=== PATIENT | female | born 1965 | race Caucasian/White ===

== ENCOUNTER 2020-11-19 16:19 | Outpatient (CLI) | payer OTHER, SELFPAY ==
--- NOTE | ~2020-11-19 | MM_ITS ---
EXAMINATION: MM screening dara BI w radha HISTORY: Screening TECHNIQUE: Craniocaudal and mediolateral oblique 3-D tomosynthesis images were obtained and synthetic 2-D images were generated. CAD analysis was submitted and interpreted. COMPARISON: Comparison to multiple prior studies sequentially, with oldest reviewed study dated 04/23. BREAST PARENCHYMAL COMPOSITION: There are scattered areas of fibroglandular density. FINDINGS: There is no evidence of suspicious mass, calcification, or architectural distortion to sugg est malignancy in either breast. There has been no suspicious interval change. IMPRESSION: 1. No mammographic evidence of malignancy. 2. Recommend routine screening mammography in one year. BI-RADS Category 1: Negative Reviewed, dictated and finalized at location A.
== END 2020-11-19 16:20 | disposition home or self-care (01) ==
PROVIDERS: PCP Internal Medicine; Visit Provider Obstetrics & Gynecology
DX: Z12.31 Encounter for screening mammogram for malignant neoplasm of breast (principal)
CPT/HCPCS: 77063; 77067

== ENCOUNTER 2022-03-24 10:41 | Outpatient (CLI) | payer BC, SELFPAY ==
--- NOTE | ~2022-03-24 | MM_ITS ---
EXAMINATION: MM screening dara BI w radha HISTORY: Screening mammogram TECHNIQUE: Craniocaudal and mediolateral oblique 3-D tomosynthesis images were obtained and synthetic 2-D images were generated. CAD analysis was submitted and interpreted. COMPARISON: 11/19/2020, 08/16/2019, 07/27/2018 bilateral screening mammogram examinations BREAST PARENCHYMAL COMPOSITION: The breasts are almost entirely fatty. FINDINGS: There is no evidence of suspicious mass, calcification, or architectural distortion to sugg est malignancy in either breast. There has been no suspicious interval change. IMPRESSION: 1. No mammographic evidence of malignancy. 2. Recommend routine screening mammography in one year. BI-RADS Category 1: Negative Reviewed, dictated and finalized at location A.
== END 2022-03-24 10:42 | disposition home or self-care (01) ==
PROVIDERS: PCP Internal Medicine; Visit Provider Obstetrics & Gynecology
DX: Z12.31 Encounter for screening mammogram for malignant neoplasm of breast (principal)
CPT/HCPCS: 77063; 77067

== ENCOUNTER 2023-09-17 01:18 | Day surgery (SDC) | payer BC, SELFPAY ==
--- NOTE | 2023-09-15 09:21 | SUR.PREOP ---
Patient called regarding upcoming procedure. Voicemail left regarding appointment times.
--- NOTE | 2023-09-16 15:04 | PM.HPGS ---
History of Present Illness History of Present Illness Consent: Risks, benefits, and alternatives have been discussed and questions answered. Patient agrees to proceed with procedure. Chief complaint: neoplasm screening Narrative: Jerilyn Lai is a 58 year old female referred for colon cancer screening. She had a polyp removed at the time of her last colonoscopy 7 years ago. Review of Systems Review of Systems: All systems reviewed & are unremarkable except as noted in HPI and below PMFSH Past Medical History Medical History Abnormal Pap smear of cervix years ago Arthritis Gestational diabetes Herpes History of Kidney stones Screening mammogram, encounter for Skin cancer Urinary incontinence Surgical History Surgical History History of blepharoplasty (09/09/17) bilateral eyelids History of 09/24/95 primary c/s 07/07/21 rpt c/s w/tubal--gestational diabetes History of elective x3 Family History Family History Grandparent Osteoporosis maternal grandmother Carcinoma of colon maternal grandfather Alzheimer's disease maternal grandmother Mother Diabetes mellitus Hypothyroidism Heart disease History of coronary artery stent placement Sibling Hypothyroidism sister Other Breast cancer paternal aunt Heart disease paternal uncle Father Multiple sclerosis Social History Social History Smoking status: Never smoker Second hand tobacco smoke exposure: Yes Alcohol intake: never Substance use: never Substance use type: does not use Living arrangements: with family Additional living arrangements comments: 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/Education: 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 Gender identity (if verbalized by the patient): Female Sexual Orientation (if Verbalized by the Patient): Straight or Heterosexual Spiritual care concerns: No Meds Home Medications and Allergies Home Medications Medication Instructions Recorded Confirmed Type multivit with minerals-iron 18 1 tablet PO DAILY 08/26/23 08/26/23 History mg-folic ac 400 mcg-vit K 25 mcg tablet (Adults Multivitamin) Allergies Allergy/AdvReac Type Severity Reaction Status Date / Time morphine AdvReac Intermediate Vomiting Verified 09/17/23 08:53 Exam Resp: Auscultation: clear to auscultation bilaterally Cardio: Rate: regular rate Rhythm: regular rhythm GI: GI Palp: Yes Soft to palpation and No Tenderness to palpation present (GI) Assessment and Plan Assessment and plan (1) Colon cancer screening: Code(s): Z12.11 - Encounter for screening for malignant neoplasm of colon Status: Acute Assessment and Plan: Colonoscopy with possible biopsy or polypectomy or cautery or injection of substances.
[2023-09-17 08:54] VITALS: BP 140/81; PULSE 80; RESP 18; TEMP 36.9; O2SAT 100
[2023-09-17] MEDS: LACTATED RINGERS 1,000 ML 150 ML IV CONT (09:01)
--- NOTE | 2023-09-17 09:21 | WPDANESEPPF ---
Anes - Initial Pre Proc Eval Procedure: Operation Date: 09/17/23 10:00 Proposed Procedures p Screening Colonoscopy - Crow Jonas MD Date/Time: 09/17/23 09:21 Surgeon: Crow Jonas MD Pre Op Diagnosis: neoplasm screening Patient Data Age: 58 Gender: F Height: 1.6 m Weight: 76.8 kg Last Vital Signs Temp 98.5 F 09/17/23 08:54 Pulse 80 09/17/23 08:54 Resp 18 09/17/23 08:54 BP 140/81 09/17/23 08:54 Pulse Ox 100 09/17/23 08:54 O2 Del Method Room Air 09/17/23 08:54 Allergies Allergy/AdvReac Type Severity Reaction Status Date / Time morphine AdvReac Intermediate Vomiting Verified 09/17/23 08:53 Home Medications Medication Instructions Recorded Confirmed Type multivit with minerals-iron 18 1 tablet PO DAILY 08/26/23 08/26/23 History mg-folic ac 400 mcg-vit K 25 mcg tablet (Adults Multivitamin) Patient hx anesthesia problems: none Family hx anesthesia problems: none Results Review: All pre-operative results and documents have been reviewed as part of the pre-operative evaluation. [facility] Past Medical History Medical History Abnormal Pap smear of cervix years ago Arthritis Gestational diabetes Herpes History of Kidney stones Screening mammogram, encounter for Skin cancer Urinary incontinence Surgical History Surgical History History of blepharoplasty (09/09/17) bilateral eyelids History of 09/24/95 primary c/s 07/07/21 rpt c/s w/tubal--gestational diabetes History of elective x3 Family History Family History Grandparent Osteoporosis maternal grandmother Carcinoma of colon maternal grandfather Alzheimer's disease maternal grandmother Mother Diabetes mellitus Hypothyroidism Heart disease History of coronary artery stent placement Sibling Hypothyroidism sister Other Breast cancer paternal aunt Heart disease paternal uncle Father Multiple sclerosis Social History Social History Smoking status: Never smoker Second hand tobacco smoke exposure: Yes Alcohol intake: never Substance use: never Substance use type: does not use Living arrangements: with family Additional living arrangements comments: 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/Education: 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 Gender identity (if verbalized by the patient): Female Sexual Orientation (if Verbalized by the Patient): Straight or Heterosexual Spiritual care concerns: No Anes - Eval Final PreProcedure Day of Procedure 09/17/23 09:21 Patient weight: normal Heart: regular rate and rhythm Lungs: clear to auscultation Airway: Mallampati scale class II Neurological: alert and oriented Last oral intake: >/= 8 hours ASA classification: II Emergent: no Anesthetic plan: proceed Anesthesia type and monitoring: general GIVS and standard monitoring Results Review: All pre-operative results and documents have been reviewed as part of the pre-operative evaluation. Informed Consent: The patient's anesthetic plan and its attendant risks and benefits were discussed with the patient/family/POA. Questions were solicited and answers provided to the satisfaction of the patient/family/POA.
[2023-09-17 09:50] VITALS: BP 108/73; PULSE 80; RESP 21; O2SAT 98
[2023-09-17 10:00] VITALS: BP 114/79; PULSE 74; RESP 16; O2SAT 98
[2023-09-17 10:10] VITALS: BP 125/84; PULSE 67; RESP 15; O2SAT 98
== END 2023-09-17 10:20 | disposition home or self-care (01) ==
PROVIDERS: PCP Internal Medicine; Visit Provider Internal Medicine Gastroenterology
PROC: 0DJD8ZZ Inspection of Lower Intestinal Tract, Via Natural or Artificial Opening Endoscopic (ICD-10-PCS; CPT 45378; principal; 2023-09-17 10:00)
DX: Z12.11 Encounter for screening for malignant neoplasm of colon (principal); K63.5 Polyp of colon; K63.89 Other specified diseases of intestine
CPT/HCPCS: 45385; 88305; J2704; J7120

== ENCOUNTER 2023-12-01 09:02 | Outpatient (CLI) | payer BC, SELFPAY ==
--- NOTE | ~2023-12-01 | MM_ITS ---
EXAMINATION: MM screening dara BI w radha HISTORY: Screening mammogram TECHNIQUE: Craniocaudal and mediolateral oblique 3-D tomosynthesis images were obtained and synthetic 2-D images were generated. CAD analysis was submitted and interpreted. COMPARISON: 03/24/2022, 11/19/2020 bilateral screening mammogram examinations BREAST PARENCHYMAL COMPOSITION: The breasts are almost entirely fatty. FINDINGS: There is no evidence of suspicious mass, calcification, or architectural distortion to sugg est malignancy in either breast. There has been no suspicious interval change. IMPRESSION: 1. No mammographic evidence of malignancy. 2. Recommend routine screening mammography in one year. BI-RADS Category 1: Negative Reviewed, dictated and finalized at location A.
== END 2023-12-01 09:03 | disposition home or self-care (01) ==
PROVIDERS: PCP Internal Medicine; Visit Provider Obstetrics & Gynecology
DX: Z12.31 Encounter for screening mammogram for malignant neoplasm of breast (principal)
CPT/HCPCS: 77063; 77067

== ENCOUNTER 2024-12-20 15:34 | Outpatient (CLI) | payer BC, SELFPAY ==
--- NOTE | ~2024-12-20 | MM_ITS ---
EXAMINATION: MM screening dara BI w radha HISTORY: Screening TECHNIQUE: Craniocaudal and mediolateral oblique 3-D tomosynthesis images were obtained and synthetic 2-D images were generated. CAD analysis was submitted and interpreted. COMPARISON: Comparison to multiple prior studies sequentially, with oldest reviewed study dated 05/09. BREAST PARENCHYMAL COMPOSITION: Not Dense: The breasts are almost entirely fatty. FINDINGS: There is no evidence of suspicious mass, calcification, or architectural distortion to sugg est malignancy in either breast. There has been no suspicious interval change. IMPRESSION: 1. No mammographic evidence of malignancy. 2. Recommend routine screening mammography in one year. BI-RADS Category 1: Negative Reviewed, dictated and finalized at location A.
--- OUTSIDE RECORDS SUMMARY | 2024-12-20 15:46 | XMS_ITS | Clinical Summary ---
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 Name Role Phone Dmitry Doan MD Primary Care Provider + [phone] Allergies Active Allergy Reactions Criticality Noted Date Comments Morphine Vomiting Low 11/07/2021 Social History Tobacco Use Types Packs/Day Years Used Date Smoking Tobacco: Never Assessed Personal Safety Answer Date Recorded Getting School Help Needed Not on file 10/22 Comments Unknown Sex and Gender Information Value Date Recorded Sex Assigned at Not on file Legal Sex Female 1:07 AM [employer] Gender Identity Not on file Sexual Orientation Not on file Plan of Treatment Health Maintenance Due Date Last Done Comments Breast Cancer Screening-Mammogram 1967 Cervical Cancer Screening 1967 Colon Cancer Screening-Colonoscopy 1967 Depression Screening 1967 Hepatitis C Screening 1967 DTaP/Tdap/Td Vaccine (1 - Tdap) 1978 Hepatitis B Screening 1985 Regular Well Visit/Exam 18-64 1985 Zoster Vaccine (1 of 2) 2017 Covid-19 Vaccine ( season) 2024 08/30/2021, 06/19/2021, 09/27/2020, Additional history exists Influenza Vaccine (#1) 2024 Pneumococcal vaccine <65 Aged Out No longer eligible based on patient's age to complete this topic Insurance [facility] [place] [id number] Care Teams Bird Sitter Relationship Specialty Start Date End Date Dmitry Doan MD PCP - General Internal Medicine 10/10/21
--- OUTSIDE RECORDS SUMMARY | 2024-12-20 15:46 | XMS_ITS | Clinical Summary ---
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 Name Role Phone Unavailable Primary Care Provider Unavailabl e Social History Tobacco Use Types Packs/Day Years Used Date Smoking Tobacco: Never Assessed Comments Unknown Sex and Gender Information Value Date Recorded Sex Assigned at Not on file Legal Sex Female 7:45 PM CDT Gender Identity Not on file Sexual Orientation Not on file Plan of Treatment Health Maintenance Due Date Last Done Comments Cervical Cancer Screening Pa p Smear (Age 30 to 64) Every 3 Years 1967 Colorectal Cancer Screening Colonoscopy (10 Years) 1967 Annual Physical 1970 Hepatitis C 1985 DTaP, Tdap and Td Vaccines ( 1 - Tdap) 1986 Hepatitis B Vaccines (1 of 3 - 19+ 3-dose series) 1986 Cervical Cancer Screening Pa p with HPV Testing (Age 30 to 64) Every 5 Years 1997 Cervical Cancer Screening with HPV 1997 Mammogram Screening 2007 Pneumococcal Vaccine: 50+ Ye ars (1 of 1 - PCV) 2017 Zoster Vaccines (1 of 2) 2017 COVID-19 Vaccine (2023-2 5 season) 2024 Meningococcal B Vaccine Aged Out No l onger eligible based on patient's age to complete this topic Meningococcal Vaccine Aged Out No ba papi eligible based on patient's age to complete this topic RSV Immunizations Under 20 Months Aged Out No longer eligible based on patient's age to complete this topic
--- OUTSIDE RECORDS SUMMARY | 2024-12-20 15:46 | XMS_ITS | Data Portability ---
Author Organization [place] [facility], Main Office Address [address] [place] [address] Care Team Providers Care Side Laster Name Role Phone LU DOAN Primary Care Provider LU DOAN Referring Provider [phone] Assessment Encounter Date Assessment Date Assessment LastModified by Organization Details LastModified Time 10/20/2022 10/20/2022 Blood work ordered Continue healthy lifestyle choices rtc 6 months [email or web address] Not available 11/01/2022 15:21:45 08/26/2023 08/26/2023 She is doing fine she is going to get a coronary calcium scoring we did discuss and she wants to pursue she will follow-up with me in 4 5 months she has had some diarrhea that got better with gluten free diet and we will continue that [email or web address] Not available 08/26/2023 14:55:23 Plan of Treatment Reminders Order Date Submit Date Provider Last Modified By Organization Details Last Modified Time Details Appointments None recorded . Lab lipid panel, serum 023 10/21/19 [employer] [facility], [address], [place], [address], 3 04:20:30 CMP, serum or plasma 023 10/21/19 [facility] [employer] [facility], [address], [place], [address], 3 04:20:32 CBC w/ auto diff 023 10/21/19 [employer] [facility], [address], [place], [address], 3 04:20:33 HbA1c (hemoglo bin A1c), blood 023 10/21/19 [facility], [address], [place], [address], 04:20:34 Referral None recorded . Procedures None recorded . Surgeries None recorded . Imaging None recorded . Medication Orders None recorded . Patient TargetsNo targets recorded. Patient InstructionsNo instructions recorded. Reason for Referral None Reported. Results Created Date Observation Date Name Description Value Unit Range Abnormal Flag Note LastModifiedBy Organization Detail LastModifiedTime 10/23/1910/23/2022 LIPID PANEL , STAND NILESH cholesterol, total 209 mg/dL <200 high Not Available [facility] [address], [address], 10/23/2022 04:20:30 10/23/19 23 10/23/2022 LIPID PANEL , STAND NILESH HDL cholesterol 59 mg/dL > or = 50 normal Not Available [facility] [address], [address], 10/23/2022 04:20:30 10/23/19 23 10/23/2022 LIPID PANEL , STAND NILESH triglyceride s 97 mg/dL <150 normal Not Available [address], [address], 10/23/2022 04:20:30 10/23/19 23 10/23/2022 LIPID PANEL , STAND NILESH LDL-choleste rol 130 mg/dL _(shalini c) high Refer ence range : <100 Osmar able range <100 mg/dL for prima ry preve ntion ; <70 mg/dL for patie nts with CHD or diabe tic patie nts with > or = 2 CHD risk facto rs. LDL-C is now calcu lated using the Osiris n-Hop kins calcu latmaurilio n, which is a valid ated novel metho d zoe fair r accur acy than the Fried karyna equat ion in the estim ation of LDL-C . Osiris n SS et al. YANIRA. 2013; 310(1 9): 2061- 2068 (http ://ed ucati on.[employer]. [employer]/f aq/FA Q164) Not Available [facility] [address], [place], [address], 10/23/2022 04:20:30 10/23/19 23 10/23/2022 LIPID PANEL , STAND NILESH chol/HDLC ratio 3.5 (calc ) <5.0 normal Not Available [facility] [address], [place], [address], 10/23/2022 04:20:30 10/23/1910/23/2022 LIPID PANEL , STAND NILESH non HDL cholesterol 150 mg/dL _(shalini c) <130 high For patie nts with diabe taz plus 1 major ASCVD risk facto r, treat ing to a non-H DL-C goal of <100 mg/dL (LDL- C of <70 mg/dL ) is consi dered a thera peuti c optio n. Not Available [facility] [address], [place], [address], 10/23/2022 04:20:30 10/23/1910/23/2022 COMPR EHENS MONICA METAB OLIC PANEL glucose 107 mg/dL 65-99 high Fasti ng refer ence inter sonali For someo ne witho ut known diabe taz, a gluco se value betwe en 100 and 125 mg/dL is consi stent with predi abete s and shoul d be confi rmed with a follo w-up test. Not Available [facility] [address] [address] [place], [address], 10/23/2022 04:20:32 10/23/1910/23/2022 COMPR EHENS MONICA METAB OLIC PANEL urea nitrogen (BUN) 17 mg/dL 7-25 normal Not Available [facility] [address] [address] [place], [address], 10/23/2022 04:20:32 10/23/19 23 10/23/2022 COMPR EHENS MONICA METAB OLIC PANEL creatinine 0.79 mg/dL 0.50-1 .03 normal Not Available [address], [address], 10/23/2022 04:20:32 10/23/19 23 10/23/2022 COMPR EHENS MONICA METAB OLIC PANEL eGFR 88 mL/mi n/1.7 3m2 > or = 60 normal The eGFR is based on the CKD-E PI 2020 equat ion. To calcu late the new eGFR from a previ ous Creat inine or Cysta tin C resul t, go to https ://flaquita marquez/coni kan s/ kdoqi /gfr% 5Fcal culat or Not Available [address], [address], 10/23/2022 04:20:32 10/23/19 23 10/23/2022 COMPR EHENS MONICA METAB OLIC PANEL BUN/creatini ne ratio NOT APPLIC ABLE (calc ) 6-22 Not Available [address], [address], 10/23/2022 04:20:32 10/23/19 23 10/23/2022 COMPR EHENS MONICA METAB OLIC PANEL sodium 141 mmol/ L 135-14 6 normal Not Available [address], [address], 10/23/2022 04:20:32 10/23/19 23 10/23/2022 COMPR EHENS MONICA METAB OLIC PANEL potassium 4.3 mmol/ L 3.5-5. 3 normal Not Available [address], [address], 10/23/2022 04:20:32 10/23/19 23 10/23/2022 COMPR EHENS MONICA METAB OLIC PANEL chloride 106 mmol/ L 98-110 normal Not Available [address], [address], 10/23/2022 04:20:32 10/23/19 23 10/23/2022 COMPR EHENS MONICA METAB OLIC PANEL carbon dioxide 24 mmol/ L 20-32 normal Not Available [address], [address], 10/23/2022 04:20:32 10/23/19 23 10/23/2022 COMPR EHENS MONICA METAB OLIC PANEL calcium 9.7 mg/dL 8.6-10 .4 normal Not Available [address], [address], 10/23/2022 04:20:32 10/23/19 23 10/23/2022 COMPR EHENS MONICA METAB OLIC PANEL protein, total 6.8 g/dL 6.1-8. 1 normal Not Available [address], [address], 10/23/2022 04:20:32 10/23/19 23 10/23/2022 COMPR EHENS MONICA METAB OLIC PANEL albumin 4.6 g/dL 3.6-5. 1 normal Not Available [address], [address], 10/23/2022 04:20:32 10/23/19 23 10/23/2022 COMPR EHENS MONICA METAB OLIC PANEL globulin 2.2 g/dL_ (calc ) 1.9-3. 7 normal Not Available [address], [address], 10/23/2022 04:20:32 10/23/19 23 10/23/2022 COMPR EHENS MONICA METAB OLIC PANEL albumin/glob ulin ratio 2.1 (calc ) 1.0-2. 5 normal Not Available [address], [address], 10/23/2022 04:20:32 10/23/19 23 10/23/2022 COMPR EHENS MONICA METAB OLIC PANEL bilirubin, total 0.5 mg/dL 0.2-1. 2 normal Not Available [address], [address], 10/23/2022 04:20:32 10/23/19 23 10/23/2022 COMPR EHENS MONICA METAB OLIC PANEL alkaline phosphatase 104 U/L 37-153 normal Not Available [address] [address] [place], [address], 10/23/2022 04:20:32 10/23/19 23 10/23/2022 COMPR EHENS MONICA METAB OLIC PANEL AST 16 U/L 10-35 normal Not Available [address], [address], 10/23/2022 04:20:32 10/23/19 23 10/23/2022 COMPR EHENS MONICA METAB OLIC PANEL ALT 19 U/L 6-29 normal Not Available [address], [address], 10/23/2022 04:20:32 10/23/19 23 10/23/2022 CBC (INCL UDES DIFF/ PLT) white blood cell count 5.5 thous and/u L 3.8-10 .8 normal Not Available [address], [address], 10/23/2022 04:20:33 10/23/19 23 10/23/2022 CBC (INCL UDES DIFF/ PLT) red blood cell count 5.02 марина on/uL 3.80-5 .10 normal Not Available [address], [address], 10/23/2022 04:20:33 10/23/19 23 10/23/2022 CBC (INCL UDES DIFF/ PLT) hemoglobin 14.2 g/dL 11.7-1 5.5 normal Not Available [address], [address], 10/23/2022 04:20:33 10/23/19 23 10/23/2022 CBC (INCL UDES DIFF/ PLT) hematocrit 42.5 % 35.0-4 5.0 normal Not Available [address], [address], 10/23/2022 04:20:33 10/23/19 23 10/23/2022 CBC (INCL UDES DIFF/ PLT) MCV 84.7 fL 80.0-1 00.0 normal Not Available [address], [address], 10/23/2022 04:20:33 10/23/19 23 10/23/2022 CBC (INCL UDES DIFF/ PLT) MCH 28.3 pg 27.0-3 3.0 normal Not Available [address], [address], 10/23/2022 04:20:33 10/23/19 23 10/23/2022 CBC (INCL UDES DIFF/ PLT) MCHC 33.4 g/dL 32.0-3 6.0 normal Not Available [address], [address], 10/23/2022 04:20:33 10/23/19 23 10/23/2022 CBC (INCL UDES DIFF/ PLT) RDW 12.2 % 11.0-1 5.0 normal Not Available [address], [address], 10/23/2022 04:20:33 10/23/19 23 10/23/2022 CBC (INCL UDES DIFF/ PLT) platelet count 311 thous and/u L 140-40 0 normal Not Available [address], [address], 10/23/2022 04:20:33 10/23/19 23 10/23/2022 CBC (INCL UDES DIFF/ PLT) MPV 9.4 fL 7.5-12 .5 normal Not Available [address], [address], 10/23/2022 04:20:33 10/23/19 23 10/23/2022 CBC (INCL UDES DIFF/ PLT) absolute neutrophils 3135 cells /uL 1500-7 800 normal Not Available [address], [address], 10/23/2022 04:20:33 10/23/19 23 10/23/2022 CBC (INCL UDES DIFF/ PLT) absolute lymphocytes 1876 cells /uL 850-39 00 normal Not Available [address], [address], 10/23/2022 04:20:33 10/23/19 23 10/23/2022 CBC (INCL UDES DIFF/ PLT) absolute monocytes 402 cells /uL 200-95 0 normal Not Available [address], [address], 10/23/2022 04:20:33 10/23/19 23 10/23/2022 CBC (INCL UDES DIFF/ PLT) absolute eosinophils 61 cells /uL 15-500 normal Not Available [address], [address], 10/23/2022 04:20:33 10/23/19 23 10/23/2022 CBC (INCL UDES DIFF/ PLT) absolute basophils 28 cells /uL 0-200 normal Not Available [address], [address], 10/23/2022 04:20:33 10/23/19 23 10/23/2022 CBC (INCL UDES DIFF/ PLT) neutrophils 57 % normal Not Available [address] [address] [place], [address], 10/23/2022 04:20:33 10/23/19 23 10/23/2022 CBC (INCL UDES DIFF/ PLT) lymphocytes 34.1 % normal Not Available [facility] [address] [address] [place], [address], 10/23/2022 04:20:33 10/23/19 23 10/23/2022 CBC (INCL UDES DIFF/ PLT) monocytes 7.3 % normal Not Available [facility] [address] [address] [place], [address], 10/23/2022 04:20:33 10/23/19 23 10/23/2022 CBC (INCL UDES DIFF/ PLT) eosinophils 1.1 % normal Not Available [facility] [address], [address], 10/23/2022 04:20:33 10/23/19 23 10/23/2022 CBC (INCL UDES DIFF/ PLT) basophils 0.5 % normal Not Available [facility] [address], [address], 10/23/2022 04:20:33 10/23/1910/23/2022 HEMOG LOBIN A1C hemoglobin A1C 6.0 %_of_ total _HGB <5.7 high For someo ne witho ut known diabe taz, a hemog lobin A1c value betwe en 5.7% and 6.4% is consi stent with predi abete s and shoul d be confi rmed with a follo w-up test. For someo ne with known diabe taz, a value <7% indic ates that their diabe taz is well contr olled . A1c targe ts shoul d be indiv idual ized based on durat ion of diabe taz, age, comor bid condi tions , and other consi derat ions. This assay resul t is consi stent with an incre ased risk of diabe taz. Curre ntly, no conse nsus exist s regar ding use of hemog lobin A1c for diagn osis of diabe taz for child david. Not Available [facility] [address] [facility], [place], [address], 10/23/2022 04:20:34 05/22/20 22 05/25/2022 XR, hip, unila teral , 2 or 3 view No observ ation record ed. [id number] [facility] [place] [address], [place], [address], 10/07/2022 06:18:32 05/25/20 22 05/25/2022 exerc ise stres s test No observ ation record ed. [id number] [facility] [address], [place], [address], 10/07/2022 06:18:32 06/17/20 22 05/26/2022 MRI, hip, w/o contr ast No observ ation record ed. [id number] [facility] [place] [address], [place], [address], 10/07/2022 06:18:32 Result Notes None recorded. Problems Name Problem SNOMED Code Status Onset Date Resolution Date Notes Provider Name and Address Organization Details Recorded Time Urinary incontinen ce 459262476 Active Not Available [facility] 3 06:14:18 Microscopi c hematuria 246758799 Active Not Available [facility] 3 06:14:18 Steven hematuria 368291724 Active Not Available [facility] 3 06:14:18 Malaise and fatigue 471476299 Active Not Available [facility] 3 06:14:18 Pain in right lower limb 081569263 Active 2021 Not Available [facility] 3 06:14:19 Ureteric stone 23828216 Active Not Available [facility] 3 06:14:19 Pain of right hip joint 9144345219720 02 Active 2021 Not Available [facility] 3 06:14:19 Trochanter ic bursitis of right hip 8675901396042 00 Active 2021 Not Available [facility] 3 06:14:19 Arthritis 2668976 Active Not Available [facility] 3 06:14:19 Subclinica l hypothyroi dism 85759246 Active 2021 Not Available [facility] 3 06:14:19 Herpetic ulceration of vulva 11565031 Active Not Available [facility] 3 06:14:19 Palpitatio ns 14754525 Active 2021 Not Available [facility] 3 06:14:19 Fatigue 97313650 Active 2021 Not Available [facility] 3 06:14:19 Weight gain 4781143 Active 2021 Not Available [facility] 3 06:14:19 Hyperlipid emia 99199283 Active 2022 Lu Doan MD [address] [place] [address], [address] , [facility] 3 15:20:09 Essential hypertensi on 74636405 Active 2022 Karoline Lacy RN null, [facility] 3 10:17:41 Upper respirator y infection 68257873 Active 2022 Alyssa Coulter null, [facility] 3 14:40:07 Blood glucose outside reference range 042011498 Active 2022 XIMENA Snyder null, [facility] 3 13:00:56 Problem Notes None recorded. Procedures Surgical History Date Name Laterality Status Provider Name and Address Organization Details Recorded Time 07/07/20 01 completed Not Available [facility] 3 06:10:51 09/24/18 96 completed Not Available [facility] 3 06:10:51 blepharoplasty completed Not Available [facility] 10/07/2022 06:10:51 Imaging Results Imaging Date Name Status LastModified by Organiz [facility] Details LastModified Time 05/26/2022 MRI, hip, w/o contrast completed [id number] [facility] [place] [address], [place], [address], 10/07/2022 06:18:32 05/25/2022 exercise stress test completed [id number] [facility] [address], [place], [address], 10/07/2022 06:18:32 05/25/2022 XR, hip, unilateral, 2 or 3 view completed [id number] [facility] [place] [address], [place], [address], 10/07/2022 06:18:32 Procedure Notes None recorded. Medical Equipment None Reported. Allergies Allergen ID Allergen Name Allergen Category Reaction Reaction Severity Criticality Documentation Date Start Date Code Code System Note Provider Name and Address Organization Details Recorded Time 03599 morphine medicatio n vomiting Not available Not available 10/07/2022 7052 RxNorm 16 yrs ago Not Available [facility] 06:18:23 Medications Name Sig Start Date Stop Date Status Note LastModified by Organization Details LastModified Time azithromy rey 250 mg tablet TAKE 2 TABLETS BY MOUTH FOR 1 DAY THEN TAKE 1 TABLET BY MOUTH DAILY FOR 4 DAYS active Not Available Not Available No t Available benzonata te 200 mg capsule Take 1 capsule 3 times a day by oral route as directed for 7 days. active Not Available Not Available No t Available fluoroura cil 5 % topical cream APPLY ON SKIN DIRECTED TWO CONSECUT MONICA DAYS PER WEEK 10/09 completed Not Available Not Available Not Available pimecroli mus 1 % topical cream 05/22 completed hasn't started yet Not Available Not Available Not Available ciproflox acin 500 mg tablet active Not Available Not Available No t Available prednisol one acetate 1 % eye drops,samuel pension SHAKE LIQUID AND INSTILL 1 DROP IN RIGHT EYE FOUR TIMES DAILY 05/14 completed Not Available Not Available Not Available tamsulosi n 0.4 mg capsule active Not Available Not Available Not Available Solaraze 3 % topical gel 10/17 completed Not Available Not Available Not Available econazole nitrate 1 % topical cream APPLY TO TOES EVERY MORNING 10/09 completed Not Available Not Available Not Available triamcino lone acetonide 0.1 % topical ointment APPLY THIN LAYER TOPICALL Y TO GROIN DAILY NEEDED active Not Available Not Available No t Available hydrocodo ne 5 mg-acetam inophen 500 mg tablet active Not Available Not Available Not Available acyclovir 200 mg capsule TAKE 1 CAPSULE BY MOUTH TWICE DAILY FOR SUPPRESS ION 06/23 completed Not Available Not Available Not Available clobetaso l 0.05 % topical ointment APPLY A THIN LAYER TO RASH ON HANDS 2 TO 3 TIMES PER DAY FOR UP TO 14 DAYS active Not Available Not Available No t Available ketoconaz ole 2 % topical cream 10/09 completed Not Available Not Available Not Available hydroxyzi ne HCl 10 mg tablet TK 1 T PO HS 06/23 completed Not Available Not Available Not Available ondansetr on 4 mg disintegr ating tablet active Not Available Not Available Not Available nitrofura ntoin monohydra te/macroc rystals 100 mg capsule TAKE 1 CAPSULE BY MOUTH TWICE A DAY 11/13 completed Not Available Not Available Not Available ProAir HFA 90 mcg/actua tion aerosol inhaler INHALE 2 PUFFS BY MOUTH EVERY 4 HOURS active Not Available Not Available No t Available Suprep Bowel Prep Kit 17.5 gram-3.13 gram-1.6 gram oral solution TAKE DIRECTED 04/18 completed Not Available Not Available Not Available ID NOW COVID-19 Test Kit TEST DIRECTED 10/09 completed Not Available Not Available Not Available COVID-19 test specimen collectio n DIRECTED 10/09 completed Not Available Not Available Not Available Vitals Date Recorded Body mass index (BMI) Body height Body weight Provider Name and Address Organization Details Last Updated DateTime 05/22/2022 32.1 kg/m2 162.56 cm 41385.77 g Not Available [facility]/07/2022 06:13:21 Date Recorded Body mass index (BMI) Body height Body weight Provider Name and Address Organization Details Last Updated DateTime 05/29/2022 31.8 kg/m2 162.56 cm 22957.59 g Not Available [facility] 10/07/2022 06:13:21 Date Recorded Body mass index (BMI) Body height Heart rate Body temperature Body weight Systolic blood pressure Diastolic blood pressure Provider Name and Address Organization Details Last Updated DateTime 2 32.4 kg/m2 162.56 cm 77 /min 98.4 [degF] 28393.9 6 g 120 mm[Hg] 76 mm[Hg] Not Available [facility] 3 06:13:20 Date Recorded Body height Body mass index (BMI) Body weight Body temperature Heart rate Systolic blood pressure Diastolic blood pressure Provider Name and Address Organization Details Last Updated DateTime 3 162.56 cm 31.1 kg/m2 78421.2 2 g 97.3 [degF] 91 /min 116 mm[Hg] 84 mm[Hg] XIMENA Lackey [facility] 3 11:16:14 Date Recorded Body height Body mass index (BMI) Body weight Body temperature Heart rate Oxygen saturation Oxygen saturation in Arterial blood by Pulse oximetry Systolic blood pressure Diastolic blood pressure Provider Name and Address Organization Details Last Updated DateTime 4 162.56 cm 29.9 kg/m2 58277.0 7 g 97.4 [degF] 76 /min 98 % 98 % 124 mm[Hg] 88 mm[Hg] Humaira Lewis MA [facility] 4 10:23:53 Social History Question Answer Notes LastModified by Organizat ion Details LastModified Time Tobacco Smoking Status Never Smoker XIMENA Snyder [facility] 08/26/2023 10:06:27 Do You Have An Advance Directive? Yes [id number] Information not available 10/07/2022 What Is Your Level Of Caffeine Consumption? None [id number] Information not available 10/07/2022 In The 14 Days Before Symptom Onset, Have You Had Close Contact With A Laboratory-alekseyi rmed COVID-19 While That Case Was Ill? No Information not available 08/26/2023 In The 14 Days Before Symptom Onset, Have You Had Close Contact With A Person Who Is Under Investigation For COVID-19 While That Person Was Ill? No Information not available 08/26/2023 What Type Of Diet Are You Following? REGULAR [id number] Information not available 10/07/2022 What Is The Highest Grade Or Level Of School You Have Completed Or The Highest Degree You Have Received? [id number] Information not available 08/26/2023 Have There Been Any Changes To Your Family Or Social Situation? No Information not available 08/26/2023 What Is The Fluoride Status Of Your Home? Unknown Information not available 08/26/2023 Are There Any Guns Present In Your Home? No Information not available 08/26/2023 Do You Use Insect Repellent Routinely? No Information not available 08/26/2023 Where Do You Live? [facility] Information not available 08/26/2023 Do You Have A Medical Power Of Commercial Lines Account Executive? Yes Information not available 08/26/2023 What Was The Date Of Your Most Recent Tobacco Screening? 10/20/2022 Information not available 08/26/2023 Have You Ever Been Counseled For Unhealthy Alcohol Use? No Information not available 08/26/2023 Do You Have Any Pets? Yes Information not available 08/26/2023 What Is Your Relationship Status? Domestic Partner [id number] Information not available 10/07/2022 Do You Use Your Seat Belt Or Car Seat Routinely? Yes Information not available 08/26/2023 Do You Have Smoke And Carbon Monoxide Detectors In Your Home? Yes Information not available 08/26/2023 Are You Passively Exposed To Smoke? No Information not available 08/26/2023 Are There Any Smokers In Your House? No Information not available 08/26/2023 What Types Of Sporting Activities Do You Participate In? Pickle Ball Information not available 08/26/2023 Do You Use Sunscreen Routinely? Yes Information not available 08/26/2023 Has Tobacco Cessation Counseling Been Provided? No Not Needed-ne tom Smoked Information not available 08/26/2023 Have You Recently Traveled Abroad? No Information not available 08/26/2023 Do You Have Any Dietary Restrictions? No Information not available 08/26/2023 Sex: Female Functional Status Question Answer Note LastModified by Organizat ion Details LastModified Time Do you use any illicit or recreational drugs? No Information not available 08/26/2023 Do you or have you ever used any other forms of tobacco or nicotine? No Information not available 08/26/2023 What is your level of alcohol consumption? 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 Moderate [id number] Information not available 10/07/2022 Mental Status Question Answer Note LastModified by Organization D etails LastModified Time Do you feel stressed (tense, restless, nervous, or anxious, or unable to sleep at night)? [id number] Information not available 08/26/2023 Family History Relationship Description Onset Age of this Age Resolved Age Notes LastModified by Organization Details LastModified Time Maternal Grandmother Osteoporosis cyahl Not available 0 08/26/2023 10:06:26 Maternal Grandmother Alzheimer's disease cyahl Not available 2023 10:06:26 Paternal Aunt Malignant tumor of breast cyahl Not available 2023 10:06:26 Maternal Grandfather Malignant tumor of colon cyahl Not available 2023 10:06:26 Father Multiple sclerosis cyahl Not available 2023 10:06:26 Mother Diabetes mellitus [id number] Not available 10/07/2022 06:10:53 Mother Heart disease [id number] Not available 10/07/2022 06:10:53 Mother Hypothyroidi sm cyahl Not available 2023 10:06:26 Mother Stented coronary artery cyahl Not available 2023 10:06:26 Sister Hypothyroidi sm cyahl Not available 2023 10:06:26 [id number]|2024-12-20 15:46:00|2024-12-20 15:46:00|XMS_ITS|BKG DAEMON|External Medical Summaries|[id number]|" Patient Health Record Created on: December 20, 2024 Jerilyn Lai : 1965 Sex: Female Author Organization [facility] Address [address] [place] [address] Care Team Providers Care Side Laster Name Role Phone Jay Gill Primary Care Provider [phone] Reason For Referral No Information Immunizations Vaccine Route Administration Date Status Comme nts COVID-19 Moderna Booster IM Intramuscular 06/19/2021 Admin istered Plan Of Treatment No Information Insurance Providers Payer Name Payer Address Payer Phone Subscriber Number Group Number Insured Name Patient Relationship to Insured Coverage Start Date Coverage End Date [facility] [address] [place] [address] [id number] Jerilyn Lai Self - patient is the insured "
--- OUTSIDE RECORDS SUMMARY | 2024-12-20 15:46 | XMS_ITS | Data Portability ---
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 states that she had a mammogram a year or so ago [email or web address] Not available 03/11/2024 13:25:25 09/07/2024 09/07/2024 blood work reviewed vitamin-D protocol obtain her colonoscopy that was done in 2023 at [facility] obtain her Pap smear results and mammogram follow up 6 months Not available 09/09/2024 15:21:36 Plan of Treatment Reminders Order Date Submit Date Provider Last Modified By Organization Details Last Modified Time Details Appointments ANY 15 2024 01:00P Kelly Doan MD Not available Not available Not available Lab vitamin D, 25-hydrox y, total, serum 2024 025 [id number] [facility], [address], [address], [place], [address], 09/07/2024 17:16:51 CBC w/ auto diff 2023 024 [facility], [address], [place], [address], 09/07/2024 15:17:36 CMP, serum or plasma 2023 024 [facility], [address], [place], [address], 09/07/2024 15:17:52 lipid panel, serum 2023 024 [facility], [address], [place], [address], 09/07/2024 15:17:59 Referral None recorded. Procedures None recorded. Surgeries None recorded. Imaging None recorded. Medication Orders ergocalci ferol (vitamin D2) 1,250 mcg (50,000 unit) capsule 2024 025 [id number] [id number], [address], [place], [place], [id number], 09/07/2024 17:16:51 Patient TargetsNo targets recorded. Patient Instructions Encounter Date Encounter Id Patient Instructions Last Modified By Organization Details Last Modified Time 09/07/2024 [id number] A healthy lifestyle: care instructions [email or web address] Not available 09/07/2024 17:16:51 Reason for Referral None Reported. Results Created Date Observation Date Name Description Value Unit Range Abnormal Flag Note LastModifiedBy Organization Detail LastModifiedTime Result Notes None recorded. Problems Name Problem SNOMED Code Status Onset Date Resolution Date Notes Provider Name and Address Organization Details Recorded Time Vitamin D deficiency 66925808 Active 025 Dmitry Doan MD Attn: Lamin doris,[address] [facility], [place], [address] , [facility] 15:20:01 Problem Notes None recorded. Procedures Surgical History Date Name Laterality Status Provider Name and Address Organization Details Recorded Time 1 ligation of bilateral fallopian tubes completed Collin Nicholson MA [facility] 02/24/2024 11:18:58 1 delivery completed Collin Nicholson MA [facility] 02/24/2024 11:19:22 6 delivery completed Collin Nicholson MA [facility] 02/24/2024 11:19:16 Imaging Results None recorded. Procedure Notes None recorded. Medical Equipment None Reported. Allergies Allergen ID Allergen Name Allergen Category Reaction Reaction Severity Criticality Documentation Date Start Date Code Code System Note Provider Name and Address Organization Details Recorded Time 882452 morphine medicatio n vomiting Not available low 09/07/20242021 7052 RxNorm Aparna ANTON Garrett null, [facility] 5 14:26:01 Medications Name Sig Start Date Stop Date Status Note LastModified by Organization Details LastModified Time azithromyci n 250 mg tablet TAKE 2 TABLETS BY MOUTH FOR 1 DAY THEN TAKE 1 TABLET BY MOUTH DAILY FOR 4 DAYS 02/23 completed Not Available Not Available Not Available ciprofloxac in 500 mg tablet TAKE 1 TABLET BY MOUTH TWICE DAILY FOR 5 DAYS 02/23 completed Not Available Not Available Not Available aspirin 81 mg tablet,leyla yed release Take 1 tablet every day by oral route. active Not Available Not Available No t Available triamcinolo ne acetonide 0.1 % topical ointment APPLY THIN LAYER TOPICALLY TO GROIN DAILY NEEDED 09/07 completed Not Available Not Available Not Available ergocalcife rol (vitamin D2) 1,250 mcg (50,000 unit) capsule TAKE 1 CAPSULE BY MOUTH EVERY WEEK active Not Available Not Available No t Available clobetasol 0.05 % topical ointment APPLY A THIN LAYER TO RASH ON HANDS 2-3 TIMES DAILY FOR UP TO 2 WEEKS active Not Available Not Available No t Available nitrofurant oin monohydrate /macrocryst als 100 mg capsule TAKE 1 CAPSULE BY MOUTH TWICE DAILY FOR 5 DAYS 02/23 completed Not Available Not Available Not Available Vitals Date Recorded Body weight Body mass index (BMI) Body height Heart rate Oxygen saturation Oxygen saturation in Arterial blood by Pulse oximetry Systolic blood pressure Diastolic blood pressure Provider Name and Address Organization Details Last Updated DateTime 4 40109.7 g 29.6 kg/m2 161.29 cm 91 /min 96 % 96 % 114 mm[Hg] 84 mm[Hg] Collin Nicholson MA [facility] 4 11:21:42 Date Recorded Body height Systolic blood pressure Diastolic blood pressure Provider Name and Address Organization Details Last Updated DateTime 07/05/2024 161.29 cm 131 mm[Hg] 82 mm[Hg] Edmar Pérez MA [facility] 07/05/2024 09:11:49 Date Recorded Body height Body mass index (BMI) Body weight Heart rate Oxygen saturation Oxygen saturation in Arterial blood by Pulse oximetry Systolic blood pressure Diastolic blood pressure Provider Name and Address Organization Details Last Updated DateTime 5 161.29 cm 30.7 kg/m2 04915.5 4 g 87 /min 96 % 96 % 122 mm[Hg] 72 mm[Hg] Aparna Garrett MA [facility] 5 14:25:34 Social History Question Answer Notes LastModified by Organizat ion Details LastModified Time Tobacco Smoking Status Never Smoker Collin Nicholson MA null, [facility] 02/24/2024 11:15:45 Do You Have An Advance Directive? Yes Information n ot available 02/24/2024 Are You Blind Or Do You Have Difficulty Seeing? No Information n ot available 02/24/2024 What Is Your Level Of Caffeine Consumption? None Information not available 02/24/2024 In The 14 Days Before Symptom Onset, Have You Had Close Contact With A Laboratory-confirm ed COVID-19 While That Case Was Ill? No Information n ot available 09/07/2024 In The 14 Days Before Symptom Onset, Have You Had Close Contact With A Person Who Is Under Investigation For COVID-19 While That Person Was Ill? No Information not available 09/07/2024 Have You Been To An Area Known To Be High Risk For COVID-19? No Information not available 09/07/2024 Are You Deaf Or Do You Have Serious Difficulty Hearing? No Information not available 02/24/2024 What Type Of Diet Are You Following? REGULAR Information n ot available 02/24/2024 What Was The Date Of Your Most Recent Tobacco Screening? 09/07/2024 Information not available 09/07/2024 What Is Your Relationship Status? Information not available 02/24/2024 Do You Use Your Seat Belt Or Car Seat Routinely? Yes Information not available 02/24/2024 Do You Have Smoke And Carbon Monoxide Detectors In Your Home? Yes Information not available 02/24/2024 Do You Use Sunscreen Routinely? Yes Information not available 02/24/2024 Has Tobacco Cessation Counseling Been Provided? No Information not available 02/24/2024 Sex: Female Functional Status Question Answer Note LastModified by Organizat ion Details LastModified Time Do you use any illicit or recreational drugs? No Information not available 02/24/2024 Do you or have you ever used any other forms of tobacco or nicotine? No Information not available 02/24/2024 What is your level of alcohol consumption? Occasional Information not available 02/24/2024 Are you currently employed? Yes Information not available 02/24/2024 Are you able to care for yourself? Yes Information not available 02/24/2024 What is your occupation? [employer] Information not available 02/24/2024 What is your exercise level? Moderate Information not available 02/24/2024 Mental Status Question Answer Note LastModified by Organization D etails LastModified Time Do you feel stressed (tense, restless, nervous, or anxious, or unable to sleep at night)? TI6174-0 Information not available 02/24/2024 Family History Relationship Description Onset Age of this Age Resolved Age Notes LastModified by Organization Details LastModified Time Mother Diabetes mellitus [email or web address] Not available 02/06 11:14:48 Mother Disorder of thyroid gland [email or web address] Not available 02/06 11:14:58 Mother Heart disease [email or web address] Not available 02/06 11:15:05 Mother Hypertensive disorder [email or web address] Not available 02/06 11:15:12 Sister Disorder of thyroid gland [email or web address] Not available 02/06 11:14:59 Father Multiple sclerosis [email or web address] Not available 02/06 11:15:20 Medical History Condition Response Coronary Artery Disease N Other N High Blood Pressure N Atrial Fibrillation N Kidney or Bladder Problems N Thyroid Problems N GI Problems N Depression N COPD N Blood Clots N Have you had a mammogram in the last yea r? N Skin Problems N Anemia N Heart Attack ([place]) N Anxiety Disorder N Diabetes N Muscle, Joint, or Bone Problems N Seizures/Epilepsy N Have you had a colonoscopy in the last 1 0 years? N Acid Reflux (GERD) N Cancer N Stroke N Asthma N Allergies N Have you had a PSA blood test in the las t year? N High Cholesterol N Hepatitis N Liver Disease N Headaches N Heart Failure N Osteoporosis N Gynecological HistoryNo gynecological history recorded. Obstetrics History GPAL:G 0 P 0 0 0 0 Immunizations Vaccine Type Date Status Note Provider Nam e and Address Organization Details Recorded Time COVID-19, mRNA, LNP-S, PF, 100 mcg/0.5mL dose or 50 mcg/0.25mL dose 08/29/2020 completed ANTON [place], [place] - [facility] 02/24/2024 11:09:05 COVID-19, mRNA, LNP-S, PF, 100 mcg/0.5mL dose or 50 mcg/0.25mL dose 08/30/2021 ANTON Di[place], [place] - [facility] 02/24/2024 11:09:05 COVID-19, mRNA, LNP-S, PF, 100 mcg/0.5mL dose or 50 mcg/0.25mL dose 09/27/2020 ANTON Di[place] [facility] 02/24/2024 11:09:05 COVID-19, mRNA, LNP-S, PF, 100 mcg/0.5mL dose or 50 mcg/0.25mL dose 06/19/2021 ANTON Dias [place] - [facility] 02/24/2024 11:09:05 COVID-19, mRNA, LNP-S, bivalent, PF, 50 mcg/0.5 mL or 25mcg/0.25 mL dose 05/28/2022 ANTON Dias [place] - [facility] 02/24/2024 11:09:05 Past Encounters Encounter ID Performer Location Encounter Start Date Encounter Closed Date Diagnosis/Indication Diagnosis SNOMED-CT Code Diagnosis ICD10 Code Diagnosis Note [id number] Dmitry Doan MD [facility] [place] [address] [place] [address] 02/24/2024 11:00:15 02/24/2024 12:01:03 Adult health examination 293504689 Z00.00 [id number] Dmitry Doan MD [facility] [place] [address] [place] [address] 07/05/2024 09:04:59 07/05/2024 09:51:19 Essential hypertension 94519433 I10 [id number] Dmitry Doan MD [facility] [place] [address] [place] [address] 09/07/2024 14:16:02 09/07/2024 15:13:13 Body mass index 30+ - obesity 543229684 Z68.30 Obesity 611657268 E66.9 Vitamin D deficiency 347 04541 E55.9 Health Concerns Section Related Observation LastModified by Organization Detai ls LastModified Time None Recorded Concern Status LastModified by Organization Details LastModified Time None Recorded Advance Directives Directive Y: Payers Encounter Date Sequence Insurance Name Policy Number Policy Vicente Covered Member ID Vicente Member ID Guarantor Name 02/24/2024 1 [place] [id number] Jerilyn Rasche [id number] Jerilyn Rasche 07/05/2024 1 [place] [id number] Jerilyn Rasche [id number] Jerilyn Rasche 09/07/2024 1 [place] [id number] Jerilyn Rasche [id number] 12 Jerilyn Rasche Notes Date Note Type Note Provider Name and Address Organization Details Recorded Time 02/24/2024 text/html she has been feeling fine Dmitry Doan MD Attn: [address] [place], [address], [facility] 03/11/2024 13:25:50 09/07/2024 text/html overall she has been doing fine Dmitry Doan MD Attn: Accounting,[address] [facility], [place], [address], [facility] 09/09/2024 15:21:52 OBGyn Episode No OBEpisode recorded.
--- OUTSIDE RECORDS SUMMARY | 2024-12-20 15:46 | XMS_ITS | CONTINUITY OF CARE DOCUMENT ---
Author Name ly modi Address Unknown Organization [facility] Address [address] [place] [address] Phone [phone] Care Team Providers Care Offal Trimmer Name Role Phone Amanuel BARNARD, Claudia Unavailable [phone] NICKOLAS BARNARD, LU Mendoza Unavailable NICKOLAS BARNARD, LU Mendoza Unavailable PROBLEMS Condition Status Date Provider Notes Cardiovascular screening active Sahara Morillo INSURANCE PROVIDERS Payer name Policy type / Coverage type [place] [employer] libertarian ID SELF PAY TREATMENT PLAN Date Name CT, Coronary Calcium Score HISTORY OF PROCEDURES Procedure Date Procedure Name Provider Procedure Notes S tatus CT- Coronary CA score Claudia Vital MD completed
--- OUTSIDE RECORDS SUMMARY | 2024-12-20 15:46 | XMS_ITS | Referral Summary ---
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
== END 2024-12-20 15:35 | disposition home or self-care (01) ==
LOC: ANHIMG 15:44
PROVIDERS: PCP Internal Medicine; Visit Provider Obstetrics & Gynecology
DX: Z12.31 Encounter for screening mammogram for malignant neoplasm of breast (principal)
CPT/HCPCS: 77063; 77067

== ENCOUNTER 2025-03-28 11:27 | Outpatient (CLI) | payer BC, SELFPAY ==
--- NOTE | ~2025-03-28 | US_ITS ---
US thyroid INDICATION: Abnormal blood chemistries TECHNIQUE: Real-time sonographic images of the thyroid gland were obtained. COMPARISON: No prior studies for comparison. FINDINGS: The right thyroid lobe measures 3.5 x 1.3 x 4 cm. The left thyroid lobe measures 4.7 x 1.7 x 1.3 cm. There is normal echotexture and echogenicity throughout the thyroid gland. No discrete nodules identified. Normal vascular flow is present. IMPRESSION: 1. Normal thyroid without discrete nodule or abnormal vascularity. Reviewed, dictated and finalized at location A.
== END 2025-03-28 11:28 | disposition home or self-care (01) ==
LOC: MICIMG 11:29
PROVIDERS: PCP Internal Medicine; Visit Provider Internal Medicine
DX: R79.89 Other specified abnormal findings of blood chemistry (principal)
CPT/HCPCS: 76536